=== PATIENT | male | born 1960 | race Caucasian/White ===

== ENCOUNTER 2020-02-29 19:41 | Observation (INO) | payer BC ==
[~2020-02-29] VITALS: Ht 177.8 cm; Wt 73.5 kg
[~2020-02-29 19:41] MED LIST: AMOXICILLIN/CL875 MG PO; CEPHALEXIN500 MG PO; EQ ASA CHLD81 MG PO; FOLIC ACID1 MG; FOLIC ACID1 MG PO; LISINOPRIL10 MG PO; LISINOPRIL5 MG PO; LOVASTATIN10 M1 PO; METFORMIN1000 MG PO; METFORMIN500 MG PO; MULTI FOR HIM PO; ULTRAM50 M1 PO; VIAGRA25 MG PO; VITAMIN B-121000 MCG PO
--- NOTE | 2020-02-29 19:41 | NUR ---
PT TO ROOM 6 BY EMS FOR COUGH AND SORE THROAT FOR 3 DAYS.
[2020-02-29 20:49] LABS: HEMOGLOBIN 16.2 g/dl (14.0-18.0); IMMATURE GRANULOCYTES 1.9 % (0.0-5.0); MEAN CELL VOLUME 96.1 fL CALC (80.0-100.0); MEAN CORPUSCULAR HGB 31.4 pG CALC (26.0-32.0); MEAN CORPUSCULAR HGB CONC 32.7 g/dL CAL (32.0-36.0); NEUT# 16.82 thou/uL (1.82-7.42); RED BLOOD COUNT 5.16 mill/uL (4.70-6.10); RED CELL DISTRI WIDTH 12.1 % (11.5-15.5)
[2020-02-29 21:02] LABS: ALBUMIN 4.2 g/dL (3.2-5.0); ALKALINE PHOSPHATASE 140 u/l (38-126); BUN 15 mg/dL (9-20); BUN/CREATININE RATIO 21 (12-20 (CALC)); CARBON DIOXIDE 31 mmol/l (22-30); CHLORIDE 87 mmol/l (95-108); CREATININE 0.7 mg/dL (0.7-1.3); GFR > 60 ML/MIN (>=60 (CALC)); GFR FOR AFR.AMER. > 60 ML/MIN (>=60 (CALC)); POTASSIUM 4.5 mmol/l (3.5-5.1); SGOT/AST 24 u/l (17-59); TOTAL PROTEIN 7.8 g/dL (6.3-8.2)
[2020-02-29 21:09] LABS: ANION GAP 15 (6-22 (CALC)); BILIRUBIN, TOTAL 1.4 mg/dL (0.0-1.4); HEMATOCRIT 49.6 % (39.0-50.0); SODIUM 128 mmol/l (137-146)
[2020-02-29 21:14] LABS: MYOGLOBIN 62 ng/mL (0 - 121)
--- NOTE | 2020-02-29 21:15 | NUR ---
RT IVY AT BEDSIDE FOR NEB TREATMENT.
--- NOTE | 2020-02-29 22:00 | NUR ---
TEMP DOWN TO 99.3
[2020-02-29] MEDS ORDERED: PERCOCET 10/31 COMBO PO (22:27)
[2020-02-29] MEDS ORDERED: AMOX/K CLAV875 M1 PO (22:27)
--- NOTE | 2020-02-29 22:30 | NUR ---
PT TO BE ADMITTED. DR STEVENS SPOKE WITH PT AND HE IS AGREEABLE. PT STILL WITH OCCASIONAL COUGH. NOT COUGHING EPISODES UNTIL HE VOMITS SINCE HE HAS BEEN HERE. STREP NEGATIVE.
--- NOTE | 2020-02-29 23:22 | NUR ---
Admission Note Report Given to: KONSTANTIN WEBB Transported by: X Wheelchair Stretcher Transported with: X Nurse Transporter X Patent IV X O2 Imager Location: ICU X MS2
--- NOTE | 2020-02-29 23:30 | NUR ---
PT ARRIVED TO MED SURG UNIT VIA WC ACCOMPANIED BY ED NURSE. PT APPEARS TO BE IN STABLE CONDITION. OXYGEN ON 2LNC AND IV ANTIBIOTIC THERAPY PROVIDED, BUT NOT YET RUNNING. WILL ADMINISTER AT THIS TIME. 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 PT ORIENTED TO ROOM, CALL SYSTEM, LIGHTS, BED AND TV. URINAL PLACED AT BEDSIDE AND WATER PROVIDED.
[2020-02-29 23:49] VITALS: BP 115/68
--- NOTE | 2020-02-29 23:50 | NUR ---
PT MEDICATED W/IV ANTIBIOTIC THERAPY. ADMISSION AND ASSESSMENT COMPLETED AT THIS TIME. POC AND SAFETY MEASURES DISCUSSED WITH PT. ASSISTED HIM WITH TV. NO S/O DISTRESS. 2L02 OXYGEN ON NC AT THIS TIME. PT DENIES ANY OTHER NEEDS AT THIS TIME. DISCUSSED PASSCODE WITH PT AND PERMISSION FOR FAMILY/FRIENDS TALKING TO ME. I INFORMED HIM THAT HIS HAD CALLED AND ASKED THAT I CALL HER FOR UPDATE AND I ASKED HIS PERMISSION TO SPEAK WITH HER FOR UPDATE, PT REPLIED, "I WILL CALL HER FOR THAT."
--- NOTE | 2020-03-01 00:22 | NUR ---
PT REQUESTING "ROLLAID FOR ACID REFLUX" PROVIDED [place] FOR INDEGESTION. ADVISED PT TO LET ME KNOW IF IT DOES NOT IMPROVE WITH THIS.
--- NOTE | 2020-03-01 02:03 | NUR ---
PT SLEEPING, OXYGEN PLACED BACK ON PT, HE HAD REMOVED. NO S/O DISTRESS NOTED. CALL LIGHT AT BEDSIDE.
[2020-03-01 04:00] VITALS: BP 127/65
--- NOTE | 2020-03-01 04:10 | NUR ---
BUOY TENDER IN TO OBTAIN V/S
[2020-03-01 05:07] LABS: HEMOGLOBIN 15.6 g/dl (14.0-18.0); IMMATURE GRANULOCYTES 0.9 % (0.0-5.0); MEAN CELL VOLUME 96.2 fL CALC (80.0-100.0); MEAN CORPUSCULAR HGB 31.3 pG CALC (26.0-32.0); MEAN CORPUSCULAR HGB CONC 32.5 g/dL CAL (32.0-36.0); NEUT# 15.42 thou/uL (1.82-7.42); RED BLOOD COUNT 4.99 mill/uL (4.70-6.10); RED CELL DISTRI WIDTH 12.2 % (11.5-15.5)
[2020-03-01 05:30] LABS: CHOLESTEROL HDL RATIO 3.9 (<4.4 (CALC))
--- NOTE | 2020-03-01 06:03 | NUR ---
PT MEDICATED ORDERS PROVIDE. NO S/O DISTRESS NOTED. OXYGEN SAT LEVEL 93% ON NC 2L 02. PT DENIES ANY DISTRESS OR OTHER NEEDS.
[2020-03-01 07:43] VITALS: BP 124/65
--- NOTE | 2020-03-01 07:43 | NUR ---
PT SITTING IN BED. A&O X3. NO DISTRESS NOTED. O2 VIA NC @ 2L IN PLACE. PRODUCTIVE COUGH NOTED, PT REPORTS X3 DAYS. COARSE BREATH SOUNDS UPON [id number]. PT DENIES THE USE OF ANY MEDICATIONS TO HELP LOWER HIS BLOOD SUGAR LEVELS. NICOTINE PATCH APPLIED TO MARK. NO OTHER NEEDS AT THIS TIME. ASSESSMENT COMPLETED. DISCUSSED POC. ISOLATION PRECAUTIONS IN PLACE. CALL LIGHT IN REACH. CONTINUE TO MONITOR.
--- NOTE | 2020-03-01 07:56 | NUR ---
ACCUCHECK 437 THIS MORNING, DR VALERA NOTIFIED, AWAITING ORDERS
[2020-03-01 12:29] VITALS: BP 115/77
--- NOTE | 2020-03-01 14:20 | NUR ---
PT TAKEN TO CT VIA WC ACCOMPANIED BY THIS FAMILY EDUCATOR, O2 VIA NC IN PLACE AT 2 L FOR TRANSPORT
[2020-03-01 16:19] VITALS: BP 154/82
--- NOTE | 2020-03-01 16:54 | NUR ---
DR VALERA SPEAKING TO PT OVER THE PHONE IN REGARDS TO CT RESULTS AND POC WITH PLANS TO TRANSFER TO [facility] FOR FURTHER EVALUATION. PT AGREEABLE TO TRANSFER.
--- NOTE | 2020-03-01 17:17 | NUR ---
JACQUE AT [facility] CALLED. AWAITING CALL BACK
--- NOTE | 2020-03-01 18:06 | NUR ---
PER JACQUE AT [facility], PT TO HAVE COVID BIOFIRE DONE BEFORE TRANSFER. DR VALERA NOTIFIED, ORDERS REC TO PLACE IN ORDER
--- NOTE | 2020-03-01 18:14 | NUR ---
PT SWABBED FOR COVID, PT TOLERATED WELL. SWAB SENT TO LAB
[2020-03-01 19:00] VITALS: BP 143/79
--- NOTE | 2020-03-01 20:00 | NUR ---
RECEIVED BED ASSIGNMENT FOR PT TRANSFER TO [facility] FROM [facility]. [facility] NOTIFIED, ETH 2100. PT INFORMED OF ETH AND PLAN OF TRANSFER, PROVIDED RM NUMBER INFORMATION.
--- NOTE | 2020-03-01 21:25 | NUR ---
PT TRANSPORTED OUT VIA STRETCHER ACCOMPANIED BY [facility] STAFF X2. PT PLACED ON 02@2LNC FOR TRANSPORT PER ORDERS. PT APPEARS TO BE IN STABLE CONDITION UPON LEAVING MED SURGE UNIT. IV LEFT IN PLACE TO [facility]PEARS HEALTHY AND FLUSH PATENT. BELONGINGS WERE BAGGED AND ACCOMPANIED PT. CELL PHONE IN HAND. PT INFORMED OF VISITATION RESTRICTIONS TO [facility] AND MASK REQUIREMENTS FOR TRANSPORT. PT VERBALIZED UNDERSTANDING.
--- NOTE | 2020-03-01 21:35 | NUR ---
REPORT CALLED TO CROW AG OF [facility].
== END 2020-03-01 21:25 | disposition short-term general hospital (02) | DRG 191 ==
LOC: ED 19:41 → ED-I 22:10 → ED 22:36 → MS2 22:37
PROVIDERS: Family Medicine; ADMIT Internal Medicine; ATTEND Internal Medicine
DX: J44.1 Chronic obstructive pulmonary disease with (acute) exacerbation (principal); R04.2 Hemoptysis; E87.1 Hypo-osmolality and hyponatremia; R22.1 Localized swelling, mass and lump, neck; R49.0 Dysphonia; J44.0 Chronic obstructive pulmonary disease with (acute) lower respiratory infection; J20.9 Acute bronchitis, unspecified; I10 Essential (primary) hypertension; E11.9 Type 2 diabetes mellitus without complications; F17.210 Nicotine dependence, cigarettes, uncomplicated; Z20.828 Contact with and (suspected) exposure to other viral communicable diseases
CPT/HCPCS: G0378; J1650; Q9967